=== PATIENT | female | born 1975 | race Caucasian/White ===

== ENCOUNTER 2017-01-06 06:02 | Inpatient (IN) | payer OTHER ==
--- NOTE | ~2017-01-06 | OR ---
Unit #: [id number] #: [id number] Patient: LANDON DIAZ [id number] [address] [address] [id number] MR#: [id number] NAME: LANDON DIAZ ROOM: 462 Date of Procedure: 01/06/2017 Admission Date: 01/06/2017 Surgeon: Kash Lake M.D. : 1975 Attending Physician: Kash Lake M.D. Referring Physician: Kash Lake M.D. Primary Care Physician: Krissy Bui Aprn OPERATIVE REPORT PREOPERATIVE DIAGNOSES Recurrent incisional ventral hernia and a previous right lower quadrant Pfannenstiel incision and an incarcerated umbilical hernia. POSTOPERATIVE DIAGNOSES Recurrent incisional ventral hernia and a previous right lower quadrant Pfannenstiel incision and an incarcerated umbilical hernia. PROCEDURES PERFORMED Exploratory laparotomy, removal of failed abdominal wall mesh and primary repair of incisional ventral hernia, open repair of incarcerated umbilical hernia with umbilicoplasty, and placement of a Jesus drain. ANESTHESIA General endotracheal anesthesia. ESTIMATED BLOOD LOSS 50 mL. INDICATIONS FOR PROCEDURE Ms. Diaz is a 41-year-old female who has had a previous laparoscopic ventral hernia repair at the [facility] for a hernia in the right lower quadrant suprapubic area. The patient was complaining of chronic pain and also had developed a hernia at the umbilicus that was incarcerated. A preoperative CT scan revealed an incarcerated umbilical hernia as well as a recurrent incisional ventral hernia with chronic hematoma or seroma formation. DESCRIPTION OF PROCEDURE The patient was admitted to [facility], positively identified and transported to the operating room, and after induction of general endotracheal anesthesia, she received IV antibiotics per SCIP protocol. After being prepped and draped in the usual sterile fashion, a vertical incision around the umbilicus was performed and the very large hernia sac was from the umbilical skin and surrounding soft tissue. I dissected down to the level of the fascia. I opened the hernia sac at the level of the fascia circumferentially and excised the hernia sac and incarcerated omentum. I reduced the remainder of the omentum back into the peritoneal cavity through the fascial defect, which was considerable. I palpated and could feel where the mesh had failed medially and it appeared pulled away from the fascia. I extended the midline incision down until I got to the mesh. There was a chronic cystic Unit #: [id number] #: [id number] Patient: LANDON DIAZ structure extending from the hernia site between the mesh and the abdominal wall and this appeared to be old loculated hematoma. This was evacuated. The mesh was then removed in its entirety and sent to the laboratory. To adequately mobilize the fascia to repair the defect, the bladder had to be mobilized anteriorly. Once this had been adequately done and we had adequate mobility of the fascia, the fascial defect was closed with #1 Vicryl full-thickness sutures. I continued on to close the rest of the fascial defect throughout the extent of the incision. I then irrigated the soft tissue with saline and Betadine, and performed an umbilicoplasty. Through a separate stab incision inferior and lateral to the open wound, an incision was made. I dissected down and entered into the space of the abdominal wall where the chronic hematoma had been and placed a passive [place] drain to facilitate external drainage and prevent wound infection. The drain was secured with 2-0 Vicryl suture. After I irrigated with saline and Betadine and performed the umbilicoplasty, Vicryl suture was used to close the soft tissue defect in layers and then the skin was closed with sterile skin iman. Dry sterile dressing was placed. Sponges and needle counts were correct x3. In the operating room, a Rey catheter was placed and we will monitor her urine output. There was no injury to the bladder during dissection, but should she have any hematuria, cystogram would be indicated. The patient tolerated the procedure well and transported to recovery in stable condition. Findings and postoperative expectations were discussed with her family. She will be admitted on 23-hour observation. Dictated by... Claier Hennessy/zandra TD: 01/07/2017 06:40 JOB #: [id number] OPERATIVE REPORT Page 1 of 1 X Kash Lake MD PROCEDURE OPERATIVE NOTE
--- NOTE | ~2017-01-06 | DS ---
Unit #: [id number] #: [id number] Patient: LANDON DIAZ [id number] [address] [place], [place] [address] [id number] MR#: [id number] NAME: LANDON DIAZ ROOM: 462 Age: 41 Sex: F Admission Date: 01/06/2017 : 1975 Discharge Date: 01/07/2017 Attending Physician: Kash Lake M.D. Referring Physician: Kash Lake M.D. Primary Care Physician: Krissy Bui Aprn DISCHARGE SUMMARY HISTORY AND EXAM Ms. Diaz is a 41-year-old female who has had previous abdominal surgery and had a previous laparoscopic ventral hernia repair at [facility]. She presented to me complaining of pain and had a palpable bulge at the site of her previous hernia repair and had a new incarcerated umbilical hernia. CT scan confirmed that she had a recurrent hernia and a new umbilical hernia. She was brought in the morning of surgery where she underwent exploratory laparotomy, removal of the failed abdominal wall mesh and primary repair of both her incisional hernia and her incarcerated umbilical hernia. Postoperatively, she is doing very well. Her pain is well controlled. Her wound is healing without complications and her laboratories are within normal limits. She is tolerating her diet and passing flatus but has not yet regained complete bowel function. She has good clear urine output and her Rey catheter will be removed. She will be discharged home today with instructions to change her abdominal dressing was needed. She can ambulate ad gifty but do no strenuous activity or any lifting greater than ten pounds. She is to wear her abdominal binder. She can undergo as tolerated. She is to call [phone] for followup appointment next Tuesday so I can remove her passive abdominal wall drain. The patient understood these instructions and will be discharged home in stable condition. Prescription for hydrocodone 7.5 mg tablets was left. Dictated by... Kash Lake M.D. DALIA/sobia TD: 01/07/2017 12:42 JOB #: [id number] DISCHARGE SUMMARY Page 1 of 1 X Kash Lake MD DISCHARGE SUMMARY
[~2017-01-06 06:02] MED LIST: CALCIUM 500 +1 EAC1 PO; MOBIC PO; MULTIVITAMINS1 EAC3 PO; ZOLOFT100 MG PO
[2017-01-06 07:20] LABS: HEMATOCRIT 43.5 % (35.0-45.0); MEAN CELL VOLUME 84.3 FL (83-96); MEAN CORPUSCULAR HGB CONC 32.1 g/dL (30-36); MEAN PLATELET VOLUME 7.9 FL (6.5-11.5); RED BLOOD COUNT 5.16 X10e (3.90-5.30); RED CELL DISTRIBUTION WIDTH 13.7 % (11.0-15.5); WHITE BLOOD COUNT 12.1 X10e3 (4.0-10.5)
[2017-01-06 07:45] LABS: ALBUMIN SERUM 3.8 g/dL (3.5-5.0); BILIRUBIN,TOTAL 0.4 mg/dL (0.2-2.0); CALCIUM SERUM 8.6 mg/dL (8.4-10.2); CREATININE SERUM 0.5 mg/dL (0.6-1.4); GLOM FILT RATE Estimated 121.9 mL/min (>60); POTASSIUM 3.3 mmol/L (3.5-5.1)
[2017-01-07 03:26] LABS: HEMATOCRIT 37.1 % (35.0-45.0); HEMOGLOBIN 12.3 gm/dL (12.0-16.0); MEAN CELL VOLUME 84.2 FL (83-96); MEAN CORPUSCULAR HEMOGLOBIN 27.8 PG (28-34); MEAN CORPUSCULAR HGB CONC 33.1 g/dL (30-36); MEAN PLATELET VOLUME 8.4 FL (6.5-11.5); RED BLOOD COUNT 4.41 X10e (3.90-5.30); RED CELL DISTRIBUTION WIDTH 13.9 % (11.0-15.5); WHITE BLOOD COUNT 13.9 X10e3 (4.0-10.5)
[2017-01-07 03:41] LABS: CALCIUM SERUM 8.4 mg/dL (8.4-10.2); CREATININE SERUM 0.5 mg/dL (0.6-1.4); GLOM FILT RATE Estimated 121.9 mL/min (>60); POTASSIUM 3.8 mmol/L (3.5-5.1)
[2017-01-07] MEDS ORDERED: HYDROCODON-ACE1 EA14 PO (10:19)
== END 2017-01-07 14:04 | disposition home or self-care (01) | DRG 354 ==
LOC: CSUR 06:02 → CPACUOF 11:15 → CSUR 11:22 → CPACUOF 11:22 → C4C 13:26
PROVIDERS: Specialist
PROC: 0WPF0JZ Removal of Synthetic Substitute from Abdominal Wall, Open Approach (ICD-10-PCS; 2017-01-06)
PROC: 0DCW0ZZ Extirpation of Matter from Peritoneum, Open Approach (ICD-10-PCS; 2017-01-06)
PROC: 0DBT0ZZ (ICD-10-PCS; 2017-01-06)
PROC: 0W9F00Z Drainage of Abdominal Wall with Drainage Device, Open Approach (ICD-10-PCS; 2017-01-06)
PROC: 0WQF0ZZ Repair Abdominal Wall, Open Approach (ICD-10-PCS; principal; 2017-01-06 09:00)
PROC: 0WQF0ZZ Repair Abdominal Wall, Open Approach (ICD-10-PCS; 2017-01-06 09:00)
DX: K43.0 Incisional hernia with obstruction, without gangrene (principal); K91.871 Postprocedural hematoma of a digestive system organ or structure following other procedure; I10 Essential (primary) hypertension; K42.0 Umbilical hernia with obstruction, without gangrene; Y83.9 Surgical procedure, unspecified as the cause of abnormal reaction of the patient, or of later complication, without mention of misadventure at the time of the procedure; M19.90 Unspecified osteoarthritis, unspecified site; F41.9 Anxiety disorder, unspecified; Z98.42 Cataract extraction status, left eye; Z98.41 Cataract extraction status, right eye; Z96.1 Presence of intraocular lens; Z82.3 Family history of stroke; Z83.3 Family history of diabetes mellitus; Z82.49 Family history of ischemic heart disease and other diseases of the circulatory system
CPT/HCPCS: 80048; 80053; 85027; 88305; 94010; J0131; J0330; J1170; J1885; J2250; J2270; J2405; J2710; J3010